=== PATIENT | male | born 1955 | race Caucasian/White ===

== ENCOUNTER 2019-12-18 06:55 | Day surgery (SDC) | payer MEDICARE ==
--- NOTE | 2019-12-16 13:18 | HP ---
DATE OF SURGERY: 12/18/2019 ANTICIPATED PROCEDURE: Colonoscopy. HISTORY OF PRESENT ILLNESS: The patient had positive Cologuard, 54 years old. No family history, no symptoms and a positive Cologuard. PAST MEDICAL HISTORY: ALLERGIES: NONE. MEDICATIONS: Atorvastatin, ibuprofen, Sertraline, Metformin, metoprolol. PAST SURGICAL HISTORY: None. SOCIAL HISTORY: Negative. FAMILY HISTORY: Negative. REVIEW OF SYSTEMS: Diabetes mellitus, hypertension. PHYSICAL EXAMINATION: VITAL SIGNS: Normal. CHEST: Clear. COR: Regular. ABDOMEN: Satisfactory. IMPRESSION: Positive Cologuard. PLAN: Colonoscopy.
[2019-12-18] MEDS ORDERED: Lactated Ringers 1,000 ML IV ONE (07:12)
[2019-12-18] MEDS ORDERED: Lactated Ringers 1,000 ML IV SCH (07:30)
[2019-12-18] MEDS ORDERED: DIPRIVAN 200 MG/20 ML IV ONE (09:16)
[2019-12-18 10:12] VITALS: BP 154/83; PULSE 74; O2SAT 98
--- NOTE | 2019-12-19 08:41 | OP ---
SURGERY DATE/TIME: 12/17/2019901 PREOPERATIVE DIAGNOSIS: Positive Cologuard. POSTOPERATIVE DIAGNOSIS: Two polyps. PROCEDURES: 1) Colonoscopy complete to cecum. 2) Hot polypectomy x2 of 1 cm each. SURGEON: Don John M.D. ANESTHESIA: MAC. COMPLICATIONS: None. CONDITION: Stable. INDICATION: A patient requiring evaluation. DESCRIPTION OF PROCEDURE: Taken to endoscopy. MAC sedation provided. Scope introduced. Scope advanced to the cecum. Base of cecum normal. Cecum, ascending, hepatic, transverse, splenic, descending. In the sigmoid two - 1 cm polyps were taken with hot biopsy forceps to extinction. Rectum and anus satisfactory. Follow up in three years. A phone call in a few days for the pathology.
== END 2019-12-18 10:20 | disposition home or self-care (01) ==
LOC: SDC 06:55
PROVIDERS: ATTEND Surgery
DX: D12.5 Benign neoplasm of sigmoid colon (principal); E11.9 Type 2 diabetes mellitus without complications; I10 Essential (primary) hypertension; Z79.899 Other long term (current) drug therapy
CPT/HCPCS: 82962; 88305; J2704